=== PATIENT | female | born 1985 | race Hispanic/Latino ===

== ENCOUNTER 2018-05-17 20:40 | Emergency (ER) | payer MEDICAID, OTHER ==
[2018-05-17 21:34] LABS: Bilirubin Small (Negative); Blood, Urine Small (Negative); Clarity CLOUDY (Clear); Glucose, Urine (Dipstick) Negative (Negative); Leukocyte Large (Negative); Nitrite Negative (Negative); Protein, Urine (Dipstick) 30 mg/dL (Neg-Trace); Specific Gravity, Urine 1.028 (1.002-1.036)
[2018-05-17 21:35] LABS: Bacteria/HPF 1+ HPF (None Seen); Pathc Cast-AUWi Flag 1.45 (0-2.49); RBC/HPF 21-50 HPF (0-3)
[2018-05-17 21:36] LABS: Hyaline Casts/LPF 0-3 HYALINE CAST LPF (0-3 Hyaline)
== END 2018-05-17 22:12 | disposition home or self-care (01) ==
LOC: ERS 20:40
DX: O23.41 Unspecified infection of urinary tract in pregnancy, first trimester (principal); O99.341 Other mental disorders complicating pregnancy, first trimester; F32.9 Major depressive disorder, single episode, unspecified
CPT/HCPCS: 81003; 81015; 87086; 99284